=== PATIENT | female | born 1955 | race American Indian/Alaskan Native ===

== ENCOUNTER 2022-06-14 20:35 | Inpatient (IN) | payer BC, OTHER ==
[2022-06-14 21:45] LABS: ANION GAP 12.9 mmol/L (5-15)
[2022-06-14] MEDS ORDERED: fentaNYL 50 MCG/ML SDV IVPUSH ONE (22:01)
[2022-06-14] MEDS ORDERED: Iopamidol 612 MG/ML 100 ML Bottle IVPUSH ONE (22:05)
[2022-06-14] MEDS ORDERED: Sodium Chloride 0.9% 1,000 ML IV ONE (23:35)
[2022-06-14] MEDS ORDERED: fentaNYL 50 MCG/ML SDV IVPUSH PRN (23:41)
[2022-06-14] MEDS ORDERED: Ondansetron 4 MG/2 ML SDV IVPUSH PRN (23:51)
[2022-06-15] MEDS: Sodium Chloride 0.9% 1,000 ML IV SCH ×3 (01:18→17:20)
[2022-06-15] MEDS: Calcium Carbonate/Vitamin D3 1250 MG-5 MCG Tab PO SCH (11:37)
[2022-06-15] MEDS: Amoxicillin 875 MG Tab PO SCH ×2 (11:37→20:12)
[2022-06-15] MEDS: Multivitamin Tab PO SCH (11:37)
[2022-06-15] MEDS: Lisinopril 10 MG Tab PO SCH (11:37)
[2022-06-15] MEDS: glipiZIDE 10 MG Tab.ER PO SCH (11:37)
[2022-06-15] MEDS: Empagliflozin 10 MG Tab PO SCH (11:37)
[2022-06-15] MEDS: Cholecalciferol (Vitamin D3) 25 MCG Tab PO SCH (11:37)
[2022-06-15] MEDS: Flecainide 50 MG Tab PO SCH ×2 (11:38→20:12)
[2022-06-15] MEDS: Aspirin 81 MG Tab.EC PO SCH (11:38)
[2022-06-15] MEDS: Atenolol 50 MG Tab PO SCH (11:38)
[2022-06-15] MEDS: metFORMIN 500 MG Tab PO SCH ×2 (11:38→20:12)
[2022-06-15] MEDS: Omeprazole 20 MG Cap.CR PO SCH (11:38)
[2022-06-15] MEDS: Insulin Glarg,Human.Rec.Analog 100 Unit/ML SUBCUT SCH (11:43)
[2022-06-15] MEDS ORDERED: Warfarin 5 MG Tab PO SCH (17:00)
[2022-06-15] MEDS ORDERED: Non-Formulary Medication 1 Each (Warfarin 7.5 MG Tablet) PO SCH (17:00)
[2022-06-15] MEDS: Acetaminophen 500 MG Tab PO PRN (17:26)
[2022-06-15] MEDS ORDERED: Warfarin 5 MG Tab PO ONE (20:00)
[2022-06-15] MEDS: Simvastatin 20 MG Tab PO SCH (20:10)
[2022-06-16] MEDS: Sodium Chloride 0.9% 1,000 ML IV SCH ×3 (01:25→17:44)
[2022-06-16] MEDS: Levothyroxine 75 MCG Tab PO SCH (06:01)
[2022-06-16 07:18] LABS: ANION GAP 11.8 mmol/L (5-15)
[2022-06-16] MEDS: metFORMIN 500 MG Tab PO SCH ×2 (08:52→20:38)
[2022-06-16] MEDS: Omeprazole 20 MG Cap.CR PO SCH (08:52)
[2022-06-16] MEDS: Atenolol 50 MG Tab PO SCH (08:54)
[2022-06-16] MEDS: Insulin Glarg,Human.Rec.Analog 100 Unit/ML SUBCUT SCH (09:00)
[2022-06-16] MEDS: Multivitamin Tab PO SCH (09:00)
[2022-06-16] MEDS: Flecainide 50 MG Tab PO SCH ×2 (09:02→20:42)
[2022-06-16] MEDS: Hydrochlorothiazide 12.5 MG Cap PO SCH (09:02)
[2022-06-16] MEDS: Simvastatin 20 MG Tab PO SCH (09:02)
[2022-06-16] MEDS: Aspirin 81 MG Tab.EC PO SCH (09:03)
[2022-06-16] MEDS: Amoxicillin 875 MG Tab PO SCH ×2 (09:03→20:38)
[2022-06-16] MEDS: Calcium Carbonate/Vitamin D3 1250 MG-5 MCG Tab PO SCH (09:03)
[2022-06-16] MEDS: Cholecalciferol (Vitamin D3) 25 MCG Tab PO SCH (09:03)
[2022-06-16] MEDS: Lisinopril 10 MG Tab PO SCH (09:04)
[2022-06-16] MEDS: glipiZIDE 10 MG Tab.ER PO SCH (09:05)
[2022-06-16] MEDS: Empagliflozin 10 MG Tab PO SCH (09:05)
[2022-06-16] MEDS ORDERED: Warfarin 2.5 MG Tab PO ONE (20:00)
[2022-06-17] MEDS: Sodium Chloride 0.9% 1,000 ML IV SCH (06:13)
[2022-06-17] MEDS: Levothyroxine 75 MCG Tab PO SCH (06:16)
[2022-06-17 07:44] LABS: ANION GAP 10.8 mmol/L (5-15)
[2022-06-17] MEDS: Acetaminophen 500 MG Tab PO PRN (07:51)
[2022-06-17] MEDS: Atenolol 50 MG Tab PO SCH (08:57)
[2022-06-17 08:59] VITALS: BP 109/55; PULSE 78
[2022-06-17] MEDS: Cholecalciferol (Vitamin D3) 25 MCG Tab PO SCH (08:59)
[2022-06-17] MEDS: glipiZIDE 10 MG Tab.ER PO SCH (09:00)
[2022-06-17] MEDS: Hydrochlorothiazide 12.5 MG Cap PO SCH (09:01)
[2022-06-17] MEDS: Lisinopril 10 MG Tab PO SCH (09:02)
[2022-06-17] MEDS: Multivitamin Tab PO SCH (09:03)
[2022-06-17] MEDS: Simvastatin 20 MG Tab PO SCH (09:03)
[2022-06-17] MEDS: Empagliflozin 10 MG Tab PO SCH (09:03)
[2022-06-17] MEDS: metFORMIN 500 MG Tab PO SCH (09:03)
[2022-06-17] MEDS: Calcium Carbonate/Vitamin D3 1250 MG-5 MCG Tab PO SCH (09:04)
[2022-06-17] MEDS: Aspirin 81 MG Tab.EC PO SCH (09:04)
[2022-06-17] MEDS: Flecainide 50 MG Tab PO SCH (09:04)
[2022-06-17] MEDS: Omeprazole 20 MG Cap.CR PO SCH (09:04)
[2022-06-17] MEDS: Amoxicillin 875 MG Tab PO SCH (09:04)
[2022-06-17] MEDS: Insulin Glarg,Human.Rec.Analog 100 Unit/ML SUBCUT SCH (09:07)
[2022-06-17] MEDS ORDERED: Warfarin 2.5 MG Tab PO ONE (20:00)
== END 2022-06-17 12:50 | disposition home or self-care (01) | DRG 439 ==
LOC: VM.ED 20:35 → VM.MS 22:45 → UNDOADMIN 22:45 → VM.MS 23:38
PROVIDERS: ADMIT Nurse Practitioner Family; ATTEND Family Medicine
DX: K85.90 Acute pancreatitis without necrosis or infection, unspecified (principal); I47.1 Supraventricular tachycardia; K86.2 Cyst of pancreas; K86.89 Other specified diseases of pancreas; N83.8 Other noninflammatory disorders of ovary, fallopian tube and broad ligament; D3A.8 Other benign neuroendocrine tumors; I48.0 Paroxysmal atrial fibrillation; E78.00 Pure hypercholesterolemia, unspecified; E03.9 Hypothyroidism, unspecified; K46.9 Unspecified abdominal hernia without obstruction or gangrene; K40.90 Unilateral inguinal hernia, without obstruction or gangrene, not specified as recurrent; I10 Essential (primary) hypertension; K21.9 Gastro-esophageal reflux disease without esophagitis; E11.69 Type 2 diabetes mellitus with other specified complication; Z87.891 Personal history of nicotine dependence; Z79.01 Long term (current) use of anticoagulants; Z79.4 Long term (current) use of insulin; Z90.49 Acquired absence of other specified parts of digestive tract; Z79.82 Long term (current) use of aspirin; Z79.899 Other long term (current) drug therapy
CPT/HCPCS: 36415; 74177; 80053; 81001; 82150; 82947; 83690; 85025; 85610; 86140; 96374; 99284; 99285-25; A9270-GY; J1815-GY; J3010; J7030; Q9967